=== PATIENT | male | born 1955 | race Caucasian/White ===

== ENCOUNTER 2018-01-17 08:12 | Outpatient (CLI) | payer OTHER ==
[2018-01-17 10:15] LABS: Mean Corpuscular HGB CONC 32.3 g/dL (32.0-36.0); Mean Corpuscular Hemoglobin 32.4 pg (27.0-31.0); Mean Platelet Volume 7.9 fL (7.4-10.4); Platelet Count 234 thou/uL (130-400); RBC Distribution Width 12.4 % (11.5-14.5); Red Blood Cell (RBC) Count 4.63 mill/uL (4.70-6.10); White Blood Cell (WBC) Count 5.7 thou/uL (4.8-10.8)
--- NOTE | 2018-01-22 20:10 | EKG ---
Test Reason : Blood Pressure : / mmHG Vent. Rate : 068 BPM Atrial Rate : 068 BPM P-R Int : 162 ms QRS Dur : 084 ms QT Int : 368 ms P-R-T Axes : 042 015 022 degrees QTc Int : 391 ms Normal sinus rhythm Normal ECG No previous ECGs available Confirmed by JUSTIN SANCHEZ (2) on 01/22/2018 8:09:45 PM Referred By: CHRISTINA Confirmed By:JUSTIN SANCHEZ
== END 2018-01-17 08:13 | disposition home or self-care (01) ==
LOC: LABBT 08:12
PROVIDERS: ATTEND Orthopaedic Surgery Hand Surgery
DX: Z01.818 Encounter for other preprocedural examination (principal)
CPT/HCPCS: 85027; 93005; 93010

== ENCOUNTER 2018-01-18 05:44 | Day surgery (SDC) | payer OTHER ==
[2018-01-17 08:36] VITALS: BMI 30.7
[2018-01-18] MEDS ORDERED: Fentanyl 250 MCG/5 ML VIAL ONE (06:10)
[2018-01-18] MEDS ORDERED: Midazolam HCl 2 mg/2 ml Vial ONE (06:10)
[2018-01-18] MEDS ORDERED: Bupivacaine 0.5% 10 ML VIAL ONE (06:29)
[2018-01-18] MEDS ORDERED: Sodium Chloride 0.9% 10 ML ONE (06:29)
[2018-01-18] MEDS ORDERED: Betamet Acet/Betamet Na Ph 30 MG/5 ML VIAL ONE (06:29)
[2018-01-18] MEDS ORDERED: Bacitracin Zinc Ointment 30 gm TUBE ONE (06:30)
[2018-01-18] MEDS ORDERED: CEFAZOLIN/Water 2 GM/20 ML SYRINGE ONE (06:43)
--- NOTE | 2018-01-18 11:48 | OP ---
DATE OF PROCEDURE: 01/18/2018 PREOPERATIVE DIAGNOSIS: Right carpal tunnel syndrome. FINDINGS: 1. Two centimeter area of stippling hourglass formation and mann erythema indicative of severe medi an nerve compression with atrophy seen and more than 2 years duration. 2. No flexor tenosynovitis. PROCEDURE: Right carpal tunnel release/median nerve neuroplasty, wrist. INJECTABLE: Injection of Celestone/betamethasone 3 mL COMPLICATIONS: None. TOURNIQUET TIME: 14 minutes. ESTIMATED BLOOD LOSS: 5 mL. ANESTHESIA: General LMA technique augmented by 10 mL 0.5% Marcaine block. DESCRIPTION OF PROCEDURE: After successful anesthesia listed above by [facility] the right arm was prepped and draped. The patient then had the time out done appropriately, identified the sit e, side and the listed procedure as being correct. He then had a 2 cm incision outlined in line with the ring finger from medial to lateral, and as far distal as Mayberry's cardinal lines were approximat cortney 5 mm distal to the volar wrist flexion crease. The limb was exsanguinated, tourniquet was inflat ed, we gave him initially 3 mL of Marcaine along the incision and then made the incision in the area outlined above, carried through skin and subcutaneous tissue, we identified transverse carpal ligamen t. Along the line just ulnar to the insertion of the palmaris longus we entered the transcarpal liga ment from the midpoint distally and then from the midpoint proximally used a combination of a [place] blade and tenotomy scissors under direct visualization. The flexor tendons were not thickened, but w e saw an area of extreme erythema flattening of the nerve by almost 50% diameter and a stippling arnold cative of severe median nerve compression in the carpal canal. The canal was released completely und er direct visualization proximal and distal and the patient had a type 1 motor takeoff which was inta ct. We then placed 3 mL of Celestone along the area of the stippling, allowed it to sit for 2 minutes, an d then prepared the wound for closure. Tourniquet was released, hemostasis obtained and we closed th e incision with interrupted 4-0 nylon in a mattress pattern. The patient left the operating room wit h a bulky dressing. No evidence of anesthetic or operative complications.
== END 2018-01-18 09:30 | disposition home or self-care (01) ==
LOC: SDC 05:44
PROVIDERS: ATTEND Orthopaedic Surgery Hand Surgery
PROC: 01N50ZZ Release Median Nerve, Open Approach (ICD-10-PCS; principal; 2018-01-18)
DX: G56.01 Carpal tunnel syndrome, right upper limb (principal); Z98.890 Other specified postprocedural states
CPT/HCPCS: A4216; J0702; J2250; J3010; J3490

== ENCOUNTER 2020-09-17 13:16 | Outpatient (CLI) | payer MEDICARE ==
--- NOTE | 2020-09-17 15:11 | CT ---
CT THORAX NONCONTRAST: (Low dose screening study) DATE: 09/17/2020 HISTORY: "Lung nodule" 65-year-old male with history of smoking. Patient states CT last year at [facility] showed lung nodule. He did not bring any CD of that pr ior study. COMPARISON: none available FINDINGS: In the right lower lobe, somewhere near the junction between the superior and basilar segments, there is a 9 x 4 x 4 mm noncalcified pulmonary nodule with long axis in the AP dimension. In the anterolateral aspect of the right middle lobe, there is an approximately 7 x 4 x 4 mm noncalci fied pulmonary nodule. Located a distance of approximately 2 cm anteromedial to that, very close to the anterior pleural fermin face, there is another right middle lobe pulmonary nodule measuring approximately 6 x 4 x 3 mm. Tiny 3 mm nodule anterior segment right upper lobe. In the lateral basilar segment of left lower lobe, close to the lateral pleural surface, a 6 x 3 x 5 mm noncalcified pulmonary nodule. At apical segment of right upper lobe, abutting posterior pleural surface, there is a 6 x 6 x 5 mm no ncalcified pulmonary nodule.. No cardiomegaly, pleural effusion, high-grade emphysematous changes, consolidation, thoracic aortic a neurysm, or mediastinal lymphadenopathy. IMPRESSION: 1) multiple small and tiny bilateral noncalcified pulmonary nodules, right greater than left. All non specific. 2) the largest is a elongated 9 x 4 x 4 mm right lower lobe pulmonary nodule. 3) strongly recommend that patient bring both the images and report of prior CT of the chest from [facility] from last year. 4) without the prior study, the 9 mm right lower lobe pulmonary nodules is a lung RADS category 4A (p robably suspicious, 5-15% chance of malignancy). Recommendation: 3 month follow-up low dose CT. PET scan may be useful.
== END 2020-09-17 13:17 | disposition home or self-care (01) ==
LOC: BICCT 13:16
PROVIDERS: ATTEND Family Medicine
DX: R91.8 Other nonspecific abnormal finding of lung field (principal); Z87.891 Personal history of nicotine dependence
CPT/HCPCS: G0297

== ENCOUNTER 2021-04-08 12:58 | Outpatient (CLI) | payer MEDICARE | END 2021-04-08 12:59 | disposition home or self-care (01) | LOC: BICCT 12:58 | PROVIDERS: ATTEND Family Medicine | DX: Z12.2 Encounter for screening for malignant neoplasm of respiratory organs (principal); Z87.891 Personal history of nicotine dependence; R91.8 Other nonspecific abnormal finding of lung field | CPT/HCPCS: 71271 ==